=== PATIENT | female | born 1960 | race Caucasian/White ===

== ENCOUNTER 2020-04-15 07:57 | Outpatient (CLI) | payer OTHER, SELFPAY ==
--- NOTE | ~2020-04-15 | MR_ITS ---
EXAMINATION: MR lumbar spine wo con DATE: 04/15/2020 08:57 INDICATION: Lumbar radiculopathy. TECHNIQUE: Magnetic resonance imaging (MRI) of the lumbar spine was performed without intravenous con trast. Sequences included sagittal T2-weighted FSE, sagittal T2-weighted FS FSE, sagittal T1-weighted FSE, and axial T2-weighted FSE. COMPARISON: None FINDINGS: There is 6 degrees levocurvature of lumbar spine. There is 3 mm anterolisthesis of L3 on L4 . Vertebral body heights are normal. There is moderately decreased disc height at L1-L2 and mildly de creased disc height at L3-L4, L4-L5, and L5-S1. The distal spinal cord signal intensity is normal. Th e conus medullaris is at L1. The following disc levels are specifically discussed: L1-L2: The disc is bulging. There is no facet joint osteoarthritis. There is mild left neural foramin al stenosis. There is mild central canal stenosis. L2-L3: The disc is bulging and has an annular fissure. There is mild bilateral facet joint osteoarthr itis. There is mild bilateral neural foraminal stenosis. There is mild central canal stenosis. L3-L4: The disc is bulging and has an annular fissure. There is moderate right and mild left facet alexandra int osteoarthritis. There is mild bilateral neural foraminal stenosis. There is mild central canal st enosis. L4-L5: The disc is bulging and has an annular fissure. There is severe bilateral facet joint osteoart hritis. There is mild bilateral neural foraminal stenosis. There is mild central canal stenosis. L5-S1: The disc is bulging and has an annular fissure. There is moderate bilateral facet joint osteoa rthritis. There is mild bilateral neural foraminal stenosis. There is mild central canal stenosis. IMPRESSION: 1. Moderate lumbar spondylosis. Reviewed, dictated and finalized at location A.
== END 2020-04-15 07:58 | disposition home or self-care (01) ==
PROVIDERS: PCP Family Medicine; Visit Provider Anesthesiology
DX: M47.26 Other spondylosis with radiculopathy, lumbar region (principal)
CPT/HCPCS: 72148

== ENCOUNTER 2020-12-21 12:49 | Emergency (ER) | payer OTHER, SELFPAY ==
[2020-12-21 14:55] VITALS: BP 150/70; PULSE 96; RESP 16; TEMP 36.8; O2SAT 99
--- NOTE | 2020-12-21 16:28 | ED.GENADULT ---
HPI - General Adult General Chief complaint: Extremity Problem,Nontraumatic Stated complaint: Pain going down L Leg Hx Sciatica Time Seen by Provider: 12/21/20 16:27 Source: patient and family Mode of arrival: ambulatory Limitations: no limitations History of Present Illness HPI narrative: Patient is here for treatment for her left-sided sciatica. She has long history of back pain was most recently evaluated by MRI in April 2020. She was prescribed meloxicam and Flexeril for the pain. She went to physical therapy for short period of time stated she did not get any relief. She did not injure herself in any way, she states the pain came on today after being up cooking for everyone yesterday for the holiday. She has taken to meloxicam so far today with no relief. Onset (ago): hour(s) Location: buttocks and left Radiation: other (left thigh) Severity: severe Quality: sharp Pain Consistency: constant Relieving factors: none Exacerbating factors: movement Associated symptoms: denies other symptoms Treatments prior to arrival: NSAID (7.5 mg Meloxicam) Related Data Allergies Allergy/AdvReac Type Severity Reaction Status Date / Time No Known Allergies Verified 05/24/10 09:12 Review of Systems Review of Systems: All systems reviewed & are unremarkable except as noted in HPI and below [facility] Social History Social History (Updated 12/21/20 @ 17:03 by Rachel Cortés PA-C) Smoking status: Never smoker Alcohol intake: never Substance use: never Gender identity (if verbalized by the patient): Female Exam Const: General: healthy appearing and alert Orientation/consciousness: patient oriented x3 Other: obvious pain Resp: Effort & Inspection: normal respiratory effort Auscultation: clear to auscultation bilaterally Cardio: Rate: regular rate Rhythm: regular rhythm Peripheral pulses: femoral pulses present Skin: General skin exam: normal color Neuro: General: patient oriented x3 and moves all extremities Other: guards left leg Extrem: General: normal to inspection Course Course Emergency Course: Plan to stand patient has taken to 7.5 mg meloxicam tablets several hours apart this morning prior to coming to the emergency room. She got no relief. Plan is to increase to 15 mg meloxicam once a day, continue muscle relaxants. Apply warm moist heat to the affected muscle group and do gentle stretching. Talk to her Physician about resuming physical therapy Vital Signs Vital signs: Vital Signs Temperature 36.8 C 12/21/20 14:55 Pulse Rate 96 12/21/20 14:55 Respiratory Rate 16 12/21/20 14:55 Blood Pressure 150/70 H 12/21/20 14:55 Pulse Oximetry 99 12/21/20 14:55 Temperature 36.8 C 12/21/20 14:55 Pulse Rate 96 12/21/20 14:55 Respiratory Rate 16 12/21/20 14:55 Blood Pressure 150/70 H 12/21/20 14:55 Pulse Oximetry 99 12/21/20 14:55 Medical Decision Making Vital Signs Vital Signs: Vital Signs Temperature 36.8 C 12/21/20 14:55 Pulse Rate 96 12/21/20 14:55 Respiratory Rate 16 12/21/20 14:55 Blood Pressure 150/70 H 12/21/20 14:55 Pulse Oximetry 99 12/21/20 14:55 Temperature 36.8 C 12/21/20 14:55 Pulse Rate 96 12/21/20 14:55 Respiratory Rate 16 12/21/20 14:55 Blood Pressure 150/70 H 12/21/20 14:55 Pulse Oximetry 99 12/21/20 14:55 Discharge Plan Discharge Clinical Impression: Sciatica of left side Patient Disposition: Home, Self-Care Condition: Stable Instructions: Antibiotic Form, Sciatica (ED) Additional Instructions: Take your meloxicam, 15 mg once a day. Continue take your muscle relaxants as previously prescribed. Warm moist heat to your affected side, do gentle stretching. Continue your daily activities as as much as tolerated. Follow-up with your primary care physician for further evaluation and possible referral for injection. Prescriptions: New meloxicam 15 mg tablet 15 mg PO DAILY Qty: 20 RF: 0 Follo
[2020-12-21] MEDS: traMADol HCL (*CRX) 50 MG TABLET PO (17:33)
== END 2020-12-21 17:38 | disposition home or self-care (01) ==
PROVIDERS: Emergency Provider Emergency Medicine; PCP Family Medicine
DX: M54.32 Sciatica, left side (principal)
CPT/HCPCS: 99283; A9270

== ENCOUNTER 2021-12-17 01:01 | Day surgery (SDC) | payer BC, SELFPAY ==
[2021-12-02 14:02] VITALS: BMI 25.7
[2021-12-17 09:15] VITALS: BP 149/72; PULSE 86; RESP 18; TEMP 36.4; O2SAT 99; BMI 26.4
[2021-12-17] MEDS: LACTATED RINGERS 1,000 ML 150 ML IV CONT (09:26)
--- NOTE | 2021-12-17 10:08 | PM.IMHP ---
H&P: HPI History of Present Illness Date/Time: 12/17/21 10:08 Chief Complaint: Neoplasia screening. Narrative: This is a 61-year-old white female patient presents today for screening colonoscopy. Patient's current weight appetite bowel movements are normal. She denies abdominal pain. Patient has had no bleeding. Family history noncontributory. She presents today for screening colonoscopy. Review of Systems Review of Systems: Review of systems noncontributory. ON LICENSE OF [facility] Social History Social History (Updated 12/21/20 @ 17:03 by Rachel Cortés PA-C) Smoking status: Never smoker Alcohol intake: never Substance use: never Living arrangements: with family Gender identity (if verbalized by the patient): Female Spiritual care concerns: No Meds Home Medications and Allergies Home Medications Medication Instructions Recorded Confirmed Type rosuvastatin 20 mg tablet 20 mg PO DAILY 12/02/21 12/17/21 History Allergies Allergy/AdvReac Type Severity Reaction Status Date / Time No Known Allergies Verified 12/02/21 14:06 Vital Signs Vital Signs - 24 hr 12/17/21 09:15 Temperature 97.5 F L Pulse Rate 86 Respiratory Rate 18 Blood Pressure 149/72 H Pulse Oximetry 99 Oxygen Delivery Room Air Exam Narrative: Physical exam reveals patient to be alert. Vital signs stable. HEENT exam unremarkable. Patient is anicteric. Lungs are clear to auscultation and percussion. Heart is without murmur or extra sounds. Abdominal exam bowel sounds present soft nontender with no organomegaly. Digital external rectal exam is normal. Assessment and Plan Assessment and plan (1) Encounter for screening colonoscopy: Code(s): Z12.11 - Encounter for screening for malignant neoplasm of colon Status: Acute Assessment and Plan: Patient presents today for screening colonoscopy. She appears to be at average risk for colon polyps. Further recommendations may be given after endoscopy.
--- NOTE | 2021-12-17 10:09 | P.PNAN_ITS ---
Anes - Initial Pre Proc Eval Procedure: Operation Date: 12/17/21 10:15 Proposed Procedures p Screening Colonoscopy - Miller Chamberlain MD Date/Time: 12/17/21 10:09 Surgeon: Miller Chamberlain MD Pre Op Diagnosis: neoplasm screening Patient Data Age: 61 Gender: F Height: 1.63 m Weight: 70 kg Last Vital Signs Temp 97.5 F L 12/17/21 09:15 Pulse 86 12/17/21 09:15 Resp 18 12/17/21 09:15 BP 149/72 H 12/17/21 09:15 Pulse Ox 99 12/17/21 09:15 O2 Del Method Room Air 12/17/21 09:15 Allergies Allergy/AdvReac Type Severity Reaction Status Date / Time No Known Allergies Verified 12/02/21 14:06 Home Medications Medication Instructions Recorded Confirmed Type rosuvastatin 20 mg tablet 20 mg PO DAILY 12/02/21 12/17/21 History Patient hx anesthesia problems: none Family hx anesthesia problems: none Results Review: All pre-operative results and documents have been reviewed as part of the pre- operative evaluation. [facility] Social History Social History (Updated 12/21/20 @ 17:03 by Rachel Cortés PA-C) Smoking status: Never smoker Alcohol intake: never Substance use: never Living arrangements: with family Gender identity (if verbalized by the patient): Female Spiritual care concerns: No Anes - Eval Final PreProcedure Day of Procedure 12/17/21 10:09 Patient weight: normal Heart: regular rate and rhythm Lungs: clear to auscultation Airway: Mallampati scale class II Neurological: alert and oriented Last oral intake: >/= 8 hours ASA classification: II Emergent: no Anesthetic plan: proceed Anesthesia type and monitoring: general GIVS and standard monitoring Results Review: All pre-operative results and documents have been reviewed as part of the pre- operative evaluation. Informed Consent: The patient's anesthetic plan and its attendant risks and benefits were discussed with the patient/family/POA. Questions were solicited and answers provided to the satisfaction of the patient/family/POA.
[2021-12-17 10:40] VITALS: BP 114/67; PULSE 84; RESP 16; O2SAT 95
[2021-12-17 10:50] VITALS: BP 131/83; PULSE 80; RESP 17; O2SAT 98
[2021-12-17 11:00] VITALS: BP 124/83; PULSE 70; RESP 20; O2SAT 99
== END 2021-12-17 11:07 | disposition home or self-care (01) ==
PROVIDERS: PCP Family Medicine; Visit Provider Internal Medicine Gastroenterology
PROC: 0DJD8ZZ Inspection of Lower Intestinal Tract, Via Natural or Artificial Opening Endoscopic (ICD-10-PCS; CPT 45378; principal; 2021-12-17 10:15)
DX: Z12.11 Encounter for screening for malignant neoplasm of colon (principal); K57.30 Diverticulosis of large intestine without perforation or abscess without bleeding; K64.8 Other hemorrhoids
CPT/HCPCS: 45378; J2704; J7120

== ENCOUNTER → 2022-06-23 14:14 | Outpatient (CLI) | payer BC, SELFPAY ==
--- NOTE | ~2022-06-23 | XR_ITS ---
XR lumbar spine 2-3V DATE: 06/23/2022 14:34 INDICATION: Low back pain TECHNIQUE: AP, lateral, coned lateral lumbosacral views COMPARISON: None FINDINGS: There is approximately 13 degrees rotatory levoscoliosis of the lumbar spine. There is multilevel degenerative disc disease, moderately severe to L1-2, mild at L2-3, moderately se anupama at L3-4, moderate at L4-5 and L5-S1. There is degenerative change at the apophyseal joints, with associated grade 1 anterolisthesis at L4- 5. Included lower thoracic and lumbar pedicles appear intact. No fracture or bone destruction is evident . The sacroiliac joints are intact. Mild degenerative change. Abdominal aortic and iliac arterial calcifications IMPRESSION: Mild rotatory levoscoliosis Multilevel degenerative disc disease Grade 1 anterolisthesis at L4-5 Reviewed, dictated and finalized at location A. [employer]
== END ==
PROVIDERS: PCP Family Medicine; Visit Provider Chiropractor
DX: M54.50 Low back pain, unspecified (principal); M41.9 Scoliosis, unspecified; M51.36 Other intervertebral disc degeneration, lumbar region
CPT/HCPCS: 72100

== ENCOUNTER → 2022-07-28 14:33 | Outpatient (CLI) | payer BC, SELFPAY ==
--- NOTE | ~2022-07-28 | XR_ITS ---
EXAMINATION: XR hip RT min 2V DATE: 07/28/2022 14:47 INDICATION: Right hip pain. TECHNIQUE: 2 views of right hip were obtained. COMPARISON: None. FINDINGS: There is lumbar levoscoliosis and moderate spondylosis. No fracture. There is mild right hi p osteoarthritis. IMPRESSION: 1. Mild right hip osteoarthritis. Reviewed, dictated and finalized at location A. NG SOAKER
== END ==
PROVIDERS: PCP Family Medicine; Visit Provider Chiropractor
DX: M16.11 Unilateral primary osteoarthritis, right hip (principal); M25.551 Pain in right hip
CPT/HCPCS: 73502

== ENCOUNTER 2023-09-01 13:15 | Outpatient (CLI) | payer MEDICARE, SELFPAY ==
--- NOTE | ~2023-09-01 | XR_ITS ---
EXAMINATION: XR scoliosis survey DATE: 09/01/2023 13:49 INDICATION: Scoliosis. TECHNIQUE: Anteroposterior and lateral views of the entire spine standing were obtained. COMPARISON: None. FINDINGS: There is no limb length discrepancy. There are 12 pairs of ribs. There are 5 nonrib-bearing lumbar segments. There is 13 degrees levoscoliosis from C5 to T6 by the Hodgson method. There is 12 deg qamar dextroscoliosis from T6 to L2. There is 13 degrees levoscoliosis from L2 to L4. There is 2 mm re trolisthesis of C5 on C6 and C6 on C7 and 4 mm anterolisthesis of L4 on L5. There is severe cervical spondylosis, mild thoracic spondylosis, and severe lumbar spondylosis. IMPRESSION: 1. Scoliosis. 2. Severe cervical and lumbar spondylosis and mild thoracic spondylosis. Reviewed, dictated and finalized at location A.
--- NOTE | ~2023-09-01 | XR_ITS ---
XR lumbar spine min 4V 09/01/2023 13:49 Indication: Back pain. Scoliosis. Procedure: 4 views lumbar spine Comparison: No prior studies for comparison. Findings: There is disc narrowing at all lumbar levels. There is grade 1 spondylolisthesis at L4-5. T here is moderate multilevel facet hypertrophy. No acute fracture or traumatic malalignment. There is levoscoliosis centered at L3. Impression: 1: Severe lumbar spondylosis with levoscoliosis. Reviewed, dictated and finalized at location A. Impression: 1: Severe lumbar spondylosis with levoscoliosis.
== END 2023-09-01 13:16 | disposition home or self-care (01) ==
LOC: ANHIMG 13:25
PROVIDERS: PCP Family Medicine; Visit Provider Neurological Surgery
DX: M48.061 Spinal stenosis, lumbar region without neurogenic claudication (principal); M41.86 Other forms of scoliosis, lumbar region; M43.06 Spondylolysis, lumbar region; M43.04 Spondylolysis, thoracic region
CPT/HCPCS: 72082; 72110

== ENCOUNTER 2023-09-05 15:04 | Outpatient (CLI) | payer MEDICARE, SELFPAY ==
--- NOTE | ~2023-09-05 | MR_ITS ---
MRI of the lumbar spine Clinical History: Stenosis Technique: Axial T2-weighted images, and sagittal T1-weighted, T2-weighted, and T2 fat-sat images wer e acquired. COMPARISON: 04/15/2020 Findings: There is worsening grade 1 anterolisthesis of L4 over L5, now measuring 5 mm. No acute frac ture seen. No suspicious bone marrow signal abnormality seen. At L1-L2, there is moderate degenerative disc narrowing. There is mild disc bulge and mild facet arth ropathy. No central canal stenosis. There is mild bilateral neural foraminal narrowing. At L2-L3, there is mild degenerative disc narrowing. There is mild disc bulge and mild facet arthropa thy. No central canal stenosis. There is mild bilateral neural foraminal narrowing. At L3-L4, there is advanced degenerative disc disease narrowing. Diffuse disc bulge and moderate face t arthropathy result in severe spinal canal stenosis/thecal sac compression. There is severe right ne ural foraminal narrowing, and moderate left neural foraminal narrowing. At L4-L5, there is degenerative disc narrowing. Disc bulge/uncovering and severe facet arthropathy re sult in severe spinal canal stenosis/thecal sac compression. There is severe left neural foraminal na rrowing, and mild to moderate right neural foraminal narrowing. At L5-S1, there is advanced degenerative disc narrowing. There is mild disc bulge with possible super imposed central to left paracentral disc protrusion. There is advanced facet arthropathy. There is mi ld central canal stenosis. There is severe left neural foraminal narrowing, and mild right neural for aminal narrowing. Paravertebral soft tissues are unremarkable. Impression: Severe degenerative spondylosis, as detailed above, especially at L3-L4 and L4-L5. Worsening 5 mm anterolisthesis of L4 over L5. Reviewed, dictated and finalized at [facility]. Impression: Severe degenerative spondylosis, as detailed above, especially at L3-L4 and L4- L5. Worsening 5 mm anterolisthesis of L4 over L5.
== END 2023-09-05 15:05 ==
LOC: MICIMG 15:05
PROVIDERS: PCP Family Medicine; Visit Provider Neurological Surgery
DX: M41.9 Scoliosis, unspecified (principal); M48.061 Spinal stenosis, lumbar region without neurogenic claudication; M43.06 Spondylolysis, lumbar region
CPT/HCPCS: 72148

== ENCOUNTER 2024-08-09 09:23 | Emergency (ER) | payer MEDICARE, SELFPAY ==
--- NOTE | 2024-08-09 09:25 | ECG_ITS ---
Test Date: 2024-08-09 09:33:16 Measurements Intervals [place] Rate: 88 P: 61 MD: 153 QRS: 22 QRSD: 85 T: 78 QT: 348 QTc: 421 Interpretive Statements SINUS RHYTHM MINIMAL ST DEPRESSION- ANTEROLAT/INF LEADS BASELINE ARTIFACT- I, II, III, AVR, AVL, AVF BORDERLINE ECG No previous ECG available for comparison Electronically Signed On 08-09-2024 09:40:50 SMALL ARMS REPAIRER by Irving Valadez D.O.
[2024-08-09 09:44] VITALS: BP 156/76; PULSE 90; RESP 16; TEMP 36.2; O2SAT 97
--- OUTSIDE RECORDS SUMMARY | 2024-08-09 10:03 | XMS_ITS | Clinical Summary ---
Author Organization [facility] Address [address] [place] [address] Care Team Providers Care Inpatient Nursing Aide Name Role Phone Ayo Dubois MD Primary Care Provider [phone] Allergies No known active allergies Medications rosuvastatin (CRESTOR) 20 MG tabletIndicatio ns:Hyperlipidem ia Take 1 tablet (20 mg total) by mouth daily. Indications: High Amount of Fats in the Blood 4 Active lisinopril (PRINIVIL) 20 MG tabletIndicatio ns:Hypertension Take 1 tablet (20 mg total) by mouth daily. Indications: High Blood Pressure 4 Active Cyanocobalamin 1000 MCG CapIndications: Supplement Take 5,000 mcg by mouth daily. Indications: Supplement Active vitamin D3, cholecalciferol , (CHOLECALCIFERO L) 125 mcg capsuleIndicati ons:Supplement Take 1 capsule by mouth daily. Indications: Supplement Active Ascorbic Acid 1000 MG TabIndications: Supplement Take 1,000 mg by mouth daily. Indications: Supplement Active amLODIPine (NORVASC) 5 MG tabletIndicatio ns:Hypertension Take 1 tablet (5 mg total) by mouth daily. Indications: High Blood Pressure 4 Active Calcium Carbonate-Vitam in D (CALTRATE 600+D OR)Indications: Supplement Take 1,200 mg by mouth daily. Indications: Supplement Active NON FORMULARYIndica tions:Supplemen t Take 2 tablets by mouth daily. Indications: Supplement [place] Active NON FORMULARYIndica tions:Supplemen t Take 2 tablets by mouth daily. Indications: Supplement Lion's Julio Cesar Active Apoaequorin (PREVAGEN) 10 MG CapIndications: Supplement Take 1 capsule by mouth daily. Indications: Supplement 4 Active NON FORMULARYIndica tions:Digestion Take 1 tablet by mouth nightly. Indications: Digestion Oxy Powder for digestion Active HYDROcodone-raimundo taminophen (NORCO) 5-325 MG tabletIndicatio ns:Acute Pain < 7 Day Supply,postop Take 1-2 tablets by mouth every 6 (six) hours as needed. Indications: Acute Pain < 7 Day Supply, postop 55 tablet 4 Active senna-docusate (SENOKOT-S) 8.6-50 MG tabletIndicatio ns:Constipation Take 1 tablet by mouth daily. 60 tablet 1 4 Active diazePAM (VALIUM) 5 MG tabletIndicatio ns:Muscle Spasm Take 1 tablet (5 mg total) by mouth every 8 (eight) hours as needed for Muscle Spasms. 45 tablet 4 Active naloxone (NARCAN) 4 MG/0.1ML nasal sprayIndication s:Opoid Reversal 1 spray by Nasal route as needed for Opioid reversal. may repeat every 2 to 3 minutes in alternating nostrils until medical assistance becomes available 1 each 4 02/28/20 25 Active Active Problems Problem Noted Date Diagnosed Date Spondylolisthesis 02/26/2024 Encounters Date Type Department Care Team Description 06/05/2024 10:15 AM CORK INSULATION SETTER - 06/05/2024 11:59 PM [facility] Hospital Encounter [facility] [place] [address] Antonino Inman MD Discharge Disposition: Home or Self Care (Routine Discharge) 06/05/2024 Travel from Last 3 Months Social History Tobacco Use Types Packs/Day Years Used Date Smoking Tobacco: Never Smokeless Tobacco: Never Tobacco Cessation:Counseling Given: Not Answered Alcohol Use Standard Drinks/Week Comments Never 0 (1 standard drink = 0.6 oz pur e alcohol) OASIS D0700: Social Isolation Answer Da te Recorded Frequency of experiencing loneliness or isolatio n Never 03/14/2024 OASIS A1250: Transportation Answer Date Recorded Lack of Transportation (Medical) No 03/14/2024 Lack of Transportation (Non-Medical) No 03/14/2024 Patient Unable or Declines to Respond No 03/14/2024 OASIS B1300: Health Literacy Answer Coleman e Recorded Frequency of needing help to read materials from doctor or pharmacy Never 03/14/2024 [facility] Utilities Answer Date Recorded In the past 12 months has th e [employer], gas, oil, or water company threatened to shut off services in your home? No 02/27/2024 Humiliation, Afraid, Rape, and Kick questionnair e Answer Date Recorded Within the last year, have y ou been afraid of your partner or ex-partner? No 02/27/2024 Within the last year, have y ou been humiliated or emotionally abused in other ways by your partner or ex-partner? No Within the last year, have y ou been kicked, hit, slapped, or otherwise physically hurt by your partner or ex-partner? No 02/27/2024 Within the last year, have y ou been raped or forced to have any kind of sexual activity by your partner or ex-partner? No 02/27/2024 Overall Financial Resource Strain (CARDIA) Answe r Date Recorded How hard is it for you to pa y for the very basics like food, housing, medical care, and heating? Not hard at all 02/27/2024 Hunger Vital Sign Answer Date Recorded Within the past 12 months, y ou worried that your food would run out before you got the money to buy more. Never true 02/27/20 24 Within the past 12 months, t he food you bought just didn't last and you didn't have money to get more. Never true 02/27/2024 PRAPARE - Transportation Answer Date Re corded In the past 12 months, has l ack of transportation kept you from medical appointments or from getting medications? No 02/17 In the past 12 months, has l ack of transportation kept you from meetings, work, or from getting things needed for daily living? No 02/27/2024 Housing Stability Vital Sign Answer Coleman e Recorded In the last 12 months, was t here a time when you were not able to pay the mortgage or rent on time? No 02/27/2024 In the past 12 months, how m any times have you moved where you were living? 0 02/27/2024 At any time in the past 12 m [facility], were you homeless or living in a assisted (including now)? No 02/27/2024 Comments No Sex and Gender Information Value Date Recorded Sex Assigned at Not on file Legal Sex Female 1:23 PM CDT Gender Identity Not on file Sexual Orientation Not on file Last Filed Vital Signs Vital Sign Reading Time Taken Comments Blood Pressure 128/80 03/14/2024 12:27 PM CDT Pulse 80 03/14/2024 12:27 PM CDT Temperature 36.6 C (97.9 F) 03/14/2024 12:27 PM CDT Respiratory Rate 16 03/14/2024 12:27 PM CDT Oxygen Saturation 96% 03/14/2024 12:27 PM CDT Inhaled Oxygen Concentration - - Weight 72.6 kg (160 lb) 03/04/2024 10:44 AM CDT Height 162.6 cm (5' 4 ) 03/04/2024 10:44 AM CDT Body Mass Index 27.46 03/04/2024 10:44 AM CDT Plan of Treatment Health Maintenance Due Date Last Done Comments Colorectal Cancer Screening Colonoscopy (10 Years) 1958 Hepatitis C 1976 Mammogram Screening 04/12/2023 04/12/2021, 02/19/2020, 10/04/2018 Annual Medicare Wellness Visit 2023 Dexa Scan (General) 2023 Pneumococcal Vaccine: 65+ Years (1 of 1 - PCV) 2023 COVID-19 Vaccine ( - season) 2024 05/03/2023, 06/28/2021, 08/21/2020 Influenza Adult (#1) 2024 05/03/2023, 04/19/2022, 06/28/2021, Additional history exists DTaP, Tdap and Td Vaccines (3 - Td or Tdap) 11/13/2031 11/12/2021, 03/17/2010 RSV Immunization or 60+ Years (1 - 1-dose 75+ series) 2033 Zoster Vaccines Completed 02/28/2020, 07/20, 04/22/2014 Meningococcal B Vaccine Aged Out No l onger eligible based on patient's age to complete this topic Meningococcal Vaccine Aged Out No latricia zoë eligible based on patient's age to complete this topic RSV Immunizations Under 20 Months Aged Out No longer eligible based on patient's age to complete this topic Goals Goal Patient Goal Type Associated Problems Recent Progress Patient-Stated? Author Patient will return to prior living situation and remain independent in ADLs upon discharge from hospital Lifestyle No Arina Mason, JUNIOR ART DIRECTOR Medical Devices Implanted Type Area Door Closer Mechanic Device Identifier Shelf Expiration Date Model / Serial / Lot Corelink F3d Straight Lumbar Cage Implanted:Qty: 1 on 02/26/2024 by Antonino Inman MD at [facility] Cage N/A: Spine Lumbar [id number] 06/23/2027 [id number] / / [id number] Description:CORELINK L3-4 Corelink F3d Straight Lumbar Cage Implanted:Qty: 1 on 02/26/2024 by Antonino Inman MD at [facility] Cage N/A: Spine Lumbar [id number] 08/20/2027 [id number] / / [id number] Description:CORELINK L5-S1 Corelink F3d Straight Lumbar Cage Implanted:Qty: 1 on 02/26/2024 by Antonino Inman MD at [facility] Cage N/A: Spine Lumbar [id number] 07/01/2028 [id number] / / [id number] Description:CORELINK L4-L5 Orthofix 90 Mm Herb Implanted:Qty: 2 on 02/26/2024 by Antonino Inman MD at [facility] Herb N/A: Spine Lumbar ORTHOFIX . [id number] / / . Orthofix 5.5 X 45 Mm Screw Implanted:Qty: 1 on 02/26/2024 by Antonino Inman MD at [facility] Screw N/A: Spine Lumbar ORTHOFIX . [id number] / / . Description:RIGHT L3 Orthofix 5.5 X 50 Mm Screws Implanted:Qty: 3 on 02/26/2024 by Antonino Inman MD at [facility] Screw N/A: Spine Lumbar ORTHOFIX . [id number] / / . Description:LEFT L3 BILATERAL L4 Orthofix 6.5 X 40 Mm Screws Implanted:Qty: 1 on 02/26/2024 by Antonino Inman MD at [facility] Screw N/A: Spine Lumbar ORTHOFIX . [id number] / / . Description:RIGHT S1 Orthofix 6.5 X 45 Mm Screws Implanted:Qty: 2 on 02/26/2024 by Antonino Inman MD at [facility] Screw N/A: Spine Lumbar ORTHOFIX . [id number] / / . Description:RIGHT L5 LEFT S1 Orthofix 6.5 X 50 Mm Screws Implanted:Qty: 1 on 02/26/2024 by Antonino Inman MD at [facility] Screw N/A: Spine Lumbar ORTHOFIX . [id number] / / . Description:LEFT L5 Orthofix Set Screws Implanted:Qty: 8 on 02/26/2024 by Antonino Inman MD at [facility] N/A: Spine Lumbar ORTHOFIX . 36 / / . Orthofix Top Loading Body Implanted:Qty: 8 on 02/26/2024 by Antonino Inman MD at [facility] N/A: Spine Lumbar ORTHOFIX . 36 / / . Procedures Procedure Name Priority Date/Time Associated Diagnosis Comments XR LUMB SPINE AP+LAT ONLY Routine 06/05/2024 10:40 AM CORK INSULATION SETTER Lumbar stenosis from Last 3 Months Results * XR LUMB SPINE AP+LAT ONLY (06/05/2024 10:40 AM CORK INSULATION SETTER) Anatomical Region Laterality Modality Spine Radiographic Alondra ging 06/08/2024 9:44 AM CORK INSULATION SETTER Impressions 06/08/2024 9:46 AM CORK INSULATION SETTER IMPRESSION: Stable fusion changes at L3-S1. Referred By: Interpreted By: Reji Leyva MD, 06/08/2024 9:44 AM Narrative 06/08/2024 9:46 AM CORK INSULATION SETTER [address] [address] Procedure(s): XR LUMB SPINE AP+LAT ONLY Date of service: 06/05/2024 10:28 AM Provided clinical information: 63 years, Female, PAIN Procedure and materials: AP and lateral view of the lumbar spine. Comparison studies: April 09, 2024. Findings: Mild right concave scoliosis of the lumbar spine. Fusion changes of bowel 3 through S1 is present. No lucency about the hardware. Intervertebral disc fixators at L3-4 L4-5 and L5-S1. Stable loss of height of the disc space is present at L1 to. Procedure Note Reji Leyva MD - 06/08/[address] [address] Procedure(s): XR LUMB SPINE AP+LAT ONLY Date of service: 06/05/2024 10:28 AM Provided clinical information: 63 years, Female, PAIN Procedure and materials: AP and lateral view of the lumbar spine. Comparison studies: April 09, 2024. Findings: Mild right concave scoliosis of the lumbar spine. Fusion changes of bowel 3 through S1 is present. No lucency about thehardware. Intervertebral disc fixators at L3-4 L4-5 and L5-S1. Stable loss of height of the disc space is present at L1 to. IMPRESSION: Stable fusion changes at L3-S1. Referred By: Interpreted By: Reji Leyva MD, 06/08/2024 9:44 AM Antonino Inman MD GENERAL IMAGING Final Result from Last 3 Months Insurance [place]INES [id number] [employer] Advance Directives * Full Code (Latest Code Status on File) Date Activated Date Inactivated Comments 03/04/2024 10:46 AM * Full Code Date Activated Date Inactivated Comments 02/26/2024 2:52 PM 02/29/2024 2:39 PM Care Teams Inpatient Nursing Aide Relationship Specialty Start Date End Date Ayo Dubois MD [address] [place] [address] PCP - General FAMILY PRACTICE 02/15/24
--- OUTSIDE RECORDS SUMMARY | 2024-08-09 10:03 | XMS_ITS | Clinical Summary ---
Author Organization [address] Address [facility] [place] [address] Care Team Providers Care Full Decator Operator Name Role Phone Ayo Dubois MD Primary Care Provider [phone] Sofía Jack MD Unavailable Allergies No known active allergies Medications PARoxetine (PAXIL) 10 mg tablet Take 1 tablet (10 mg total) by mouth every morning 30 tablet 11 03/18/2021 Active Active Problems Problem Noted Date Diagnosed Date Lichen sclerosus et atrophicus 10/24/2018 Surgical History Surgery Date Site/Laterality Comments APPENDECTOMY 06/19/1978 - 06/18/1979 TUBAL LIGATION 06/19/1984 - 06/18/1985 VAGINAL HYSTERECTOMY 06/19/1994 - 06/18/1995 TVH; fibroids COMBINED AUGMENTATION MAMMAPLASTY AND ABDOMINOPLASTY 06/19/2008 - 06/18/2009 breast lift iwth abdominoplasty Medical History Medical History Date Comments Fibroid Family History Medical History Relation Name Comments Diabetes Father Heart disease Maternal Grandmother Heart disease Mother Relation Name Status Comments Father Maternal Grandmother Mother Social History Tobacco Use Types Packs/Day Years Used Date Smoking Tobacco: Never Smokeless Tobacco: Never Alcohol Use Standard Drinks/Week Comments Never 0 (1 standard drink = 0.6 oz pur e alcohol) AUDIT-C Answer Date Recorded Frequency of Alcohol Consumption Never 08/27/2018 Average Number of Drinks Not on file 019 Frequency of Binge Drinking Not on file 08/17 PHQ-2 Answer Date Recorded PHQ-2 Score 0 02/09/2019 Personal Safety Answer Date Recorded Getting School Help Needed Not on file 07/23 Comments No Sex and Gender Information Value Date Recorded Sex Assigned at Not on file Legal Sex Female 6:13 PM CHARACTER IMPERSONATOR Gender Identity Female 03/11/2021 8:45 AM CDT Sexual Orientation Straight 03/11/2021 8: 45 AM CDT 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 Not on file Not on file Obstetrics History Para Term AB IAB SAB Ectopic Multiple Livin g Live Births 2 2 2 2 2 Date Outcome GA Total Labor Labor/2nd/3rd Weight Sex Type Anes PTL Cheri A1 A5 Name Clin Term Vag-S pont Living Term Vag-S pont Living Last Filed Vital Signs Vital Sign Reading Time Taken Comments Blood Pressure 134/86 03/11/2021 2:14 PM CDT Pulse - - Temperature - - Respiratory Rate - - Oxygen Saturation - - Inhaled Oxygen Concentration - - Weight 71.7 kg (158 lb) 03/11/2021 2:14 PM CDT Height 160 cm (5' 3 ) 03/11/2021 2:14 PM CDT Body Mass Index 27.99 03/11/2021 2:14 PM CDT Plan of Treatment Not on file Insurance [email or web address] [place] [facility] Care Teams Full Decator Operator Relationship Specialty Start Date End Date Ayo Dubois MD [address] [place] [id number] PCP - General Family Medicine 07/24/18 Sofía Jack MD [address] [place] [address] [place] [address] Consulting Physician Obstetrics and Gynecology 08/27/18
--- OUTSIDE RECORDS SUMMARY | 2024-08-09 10:04 | XMS_ITS ---
Author Organization [facility] Address [address] [facility] [place] [address] Care Team Providers Care Production Team Leader Name Role Phone SIXTO DWYER, NAGA REGGIE Primary Care Provider Unav ailable Jacobo Emanuel Unavailable [phone] Camilo Ayala DC Unavailable Unavailable REASON FOR VISIT follow up Encounters Encounter Location Date Provider Diagnosis [facility] [address] [facility] [address] [place] [address] 06/27/2023 Jacobo Emanuel PLAN OF TREATMENT No Information
--- OUTSIDE RECORDS SUMMARY | 2024-08-09 10:04 | XMS_ITS | Patient Health Record ---
Author Organization [facility] Address [address] [place] [address] [place] [address] Care Team Providers Care Equipment Operat0R Name Role Phone SIXTO DWYER, NAGA REGGIE Primary Care Provider Unav Jacobo Martinez Unavailable [phone] Camilo Ayala DC Unavailable Unavailable ALLERGIES Allergen (clinical drug ingredient) Drug/Non Drug Allergy documented on EMR Reaction Allergy Type Onset Date Status pregabalin Lyrica felt depressed Drug Allergy A ctive tramadol Tramadol sedation Drug Allergy Active REASON FOR REFERRAL No Information MEDICATIONS Medication SIG (Take, Route, Frequency, Duration) Notes Start Date End Date Status traMADol HCl 50 MG 1 tablet as needed O rally Once a day Active Fish Oil Active Calcium Active Cyclobenzaprine HCl 5 MG 1-2 tab orally at bed time as needed for muscle spasm for 30 day(s) 10/20/2020 Active Meloxicam 7.5 MG 1 tablet Orally BID pain for 30 day(s) 10/20/2020 Active Medrol 4 MG as directed Orally 12/13/2022 Active Lisinopril 10 MG Oral for 90 A ctive Rosuvastatin Calcium 20 MG TAKE 1 TABLET BY MOUTH DAILY Oral for 90 Active SOCIAL HISTORY Tobacco Use: Social History Observation Description Date Details (start date - stop date) Never Smoker NA - NA Sex Assigned At : Social History Observation Description Sex Assigned At Unknown Tobacco Use/Smoking Question Answer Notes Are you a nonsmoker Alcohol Screen (Audit-C) Question Answer Notes Did you have a drink containing alcohol in the p ast year? No Points 0 Interpretation Negative PROBLEMS Problem Type ICD Code Onset Dates Problem Status W/U Status Risk SNOMED Code Notes Problem Sacroiliitis, not elsewhere classified (M46.1) Active confirmed Solitary sacroiliitis (089705986) Problem Spondylosis without myelopathy or radiculopathy, lumbar region (M47.816) Active confirmed Lumbosacral spondylosis without myelopathy (67761276) Problem Spondylosis without myelopathy or radiculopathy, lumbosacral region (M47.817) Active confirmed Lumbosacral spondylosis without myelopathy (disorder) (52788827) Problem Intervertebral disc disorders with radiculopathy, lumbar region (M51.16) Active confirmed Radiculopathy d ue to lumbar intervertebral disc disorder (897999978408125) Problem Other intervertebral disc degeneration, lumbar region (M51.36) Active confirmed Degeneration of lumbar intervertebral disc (48501311) Problem Radiculopathy, lumbar region (M54.16) Active confirmed Lumbar radiculopathy (503333106) Problem Radiculopathy, lumbosacral region (M54.17) Active confirmed Lumbosacral radiculopathy (5197181) Problem Low back pain (M54.5) Active confirmed Low back pain (522556901) Problem Osseous stenosis of neural canal of lumbar region (M99.33) Active confirmed Spinal stenosis of lumbar region (03211225) Problem predatory animal exterminator (current) use of anticoagulants (Z79.01) Active confirmed Long-term curre nt use of anticoagulant (390853503) PLAN OF TREATMENT Pending Test Test Name Order Date MRI : Lumbar Spine without contrast (721 48) 07/30/2014 MRI : Lumbar Spine without contrast (721 48) 04/09/2020 Insurance Providers Payer Name Payer Address Payer Phone Subscriber Number Group Number Insured Name Patient Relationship to Insured Coverage Start Date Coverage End Date [facility] [address] [place] [address] [id number] ELHAM EARL Self - patient is the insured MEDICAL (GENERAL) HISTORY Medical History History ICD Code Migraine Headaches Surgical History Surgery Date(Month/Year) Appendectomy 1998 Hysterectomy 2001
--- OUTSIDE RECORDS SUMMARY | 2024-08-09 10:04 | XMS_ITS | Clinical Summary ---
Author Organization [facility] Address [address] [place] [address] Care Team Providers Care Systems Protection Technician Name Role Phone Ayo Dubois MD Primary Care Provider [phone] Source Comments [facility],non-owned Affiliates and Associated Physician Practices is amultiple site organization consisting of ambulatory clinics and hospital sitesin [place], [place], [place] and [place]. This disclosure is being madepursuant to the Care Everywhere program and may not contain all information available regarding this patient. Last updated 18.[facility] Allergies No known active allergies Medications * Be aware that medications may not be up to date on this document. Alwaysverify current medications with the patient. Medication Sig Dispensed Refills Start Date End Date Status estradiol (ESTRACE) 0.5 MG tablet Take 0.5 mg by mouth once daily 2 11/09/2018 Active phentermine (ADIPEX-P) 37.5 MG tablet Take 37.5 mg by mouth daily before breakfast Active Cyanocobalamin (B-12) 1000 MCG Take 5,000 mcg by mouth once daily Active Pyridoxine HCl (VITAMIN B-6 PO) Take 2 mg by mouth once daily Active folic acid 800 MCG tablet Take 800 mcg by mouth once daily Active vitamin D3 (D-3-5) 5000 units capsule Take 5,000 Units by mouth once daily Active vitamin C (ASCORBIC ACID) 1000 MG tablet Take 1,000 mg by mouth once daily Active Bude-3 Fatty Acids (OMEGA-3 FISH OIL) 1200 MG Take 1,200 mg by mouth once daily Active Calcium Carbonate-Vit D-Min (CALCIUM 1200 PO) Take 1,200 mg by mouth once daily Active aspirin (ASPIRIN) 81 MG tablet Take 81 mg by mouth once daily Active Active Problems Problem Noted Date Diagnosed Date 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 (F LUZONE; FLULAVAL; FLUARIX; AFLURIA QUADRIVALENT; 6MO+), 0.5 ML (IIV4) 04/15/2019 Family History Medical History Relation Name Comments Dementia Father Diabetes - Type 2 Father Hypertension Father CAD (Coronary Artery Disease) Mother Hyperlipidemia Mother Relation Name Status Comments Father Mother Social History Tobacco Use Types Packs/Day Years Used Date Smoking Tobacco: Never Smokeless Tobacco: Never Alcohol Use Standard Drinks/Week Comments Yes 0 (1 standard drink = 0.6 oz pur e alcohol) Sex and Gender Information Value Date Recorded Sex Assigned at Not on file Gender Identity Not on file Sexual Orientation Not on file Last Filed Vital Signs Vital Sign Reading Time Taken Comments Blood Pressure 149/88 11/20/2018 3:55 PM CDT Pulse 89 11/20/2018 3:55 PM CDT Temperature - - Respiratory Rate - - Oxygen Saturation - - Inhaled Oxygen Concentration - - Weight 65.8 kg (145 lb) 04/25/2019 11:14 AM HOME SERVICE DIRECTOR Height 160 cm (5' 3 ) 04/25/2019 11:14 AM HOME SERVICE DIRECTOR Body Mass Index 25.69 04/25/2019 11:14 AM HOME SERVICE DIRECTOR Plan of Treatment Health Maintenance Due Date Last Done Comments BONE DENSITY TESTING 1960 COLOGUARD (AGES 45-75) - COL ON CA SCREENING 1958 COLON MONITORING 1958 COLONOSCOPY - COLON CA SCREENING 1958 CT COLONOGRAPHY - COLON CA SCREENING 1960 Colorectal Cancer Screening 1958 FIT - COLON CA SCREENING 1958 FLEX SIG - COLON CA SCREENING 1958 LIPID TESTING 1958 PAP SMEAR 1958 HIV SCREENING 1973 HEPATITIS C SCREENING 07/16/1976 DTAP/TDAP/TD VACCINES (1 - Tdap) 1977 PNEUMOCOCCAL VACCINE 50+ (1 of 1 - PCV) 2008 ZOSTER VACCINE (1 of 2) 2008 SCREENING FOR DIABETES 11/20/2018 MAMMOGRAM 10/04/2020 10/04/2018 COVID-19 VACCINE ( - 2023-2 5 season) 2024 INFLUENZA VACCINE (#1) 2024 04/15/2019 DEPRESSION SCREENING 06/19/2024 Respiratory Syncytial Virus (RSV) Vaccine Pt: or over 60 yrs (1 - 1-dose 75+ series) 2033 HEPATITIS B VACCINE Aged Out No longe r eligible based on patient's age to complete this topic HIB VACCINE Aged Out No longer eligi ble based on patient's age to complete this topic HPV VACCINE Aged Out No longer eligi ble based on patient's age to complete this topic MENINGOCOCCAL (Group B) VACCINE Aged Out No longer eligible based on patient's age to complete this topic MENINGOCOCCAL VACCINE Aged Out No latricia zoë eligible based on patient's age to complete this topic Care Teams Systems Protection Technician Relationship Specialty Start Date End Date Ayo Dubois MD [address] [place] [address] [place] [address] PCP - General 11/02/18
--- OUTSIDE RECORDS SUMMARY | 2024-08-09 10:04 | XMS_ITS | Patient Health Summary ---
Author Organization [facility] Address [address] [place] [address] Care Team Providers Care Tile Designer Name Role Phone Ayo Dubois MD Primary Care Provider [phone] Note from [facility],non-owned Affiliates and Associated Physician Practices is amultiple site organization consisting of ambulatory clinics and hospital sitesin [place], [place], [place] and [place]. This disclosure is being madepursuant to the Care Everywhere program and may not contain all information available regarding this patient. Last updated 18.[facility] Allergies No known active allergies Medications * Be aware that medications may not be up to date on this document. Alwaysverify current medications with the patient. * estradiol (ESTRACE) 0.5 MG tablet(Started 11/09/2018) Take 0.5 mg by mouth once daily 2 refills left * phentermine (ADIPEX-P) 37.5 MG tablet Take 37.5 mg by mouth daily before breakfast * Cyanocobalamin (B-12) 1000 MCG Take 5,000 mcg by mouth once daily * Pyridoxine HCl (VITAMIN B-6 PO) Take 2 mg by mouth once daily * folic acid 800 MCG tablet Take 800 mcg by mouth once daily * vitamin D3 (D-3-5) 5000 units capsule Take 5,000 Units by mouth once daily * vitamin C (ASCORBIC ACID) 1000 MG tablet Take 1,000 mg by mouth once daily * [place]-3 Fatty Acids (OMEGA-3 FISH OIL) 1200 MG Take 1,200 mg by mouth once daily * Calcium Carbonate-Vit D-Min (CALCIUM 1200 PO) Take 1,200 mg by mouth once daily * aspirin (ASPIRIN) 81 MG tablet Take 81 mg by mouth once daily Active Problems Problem Noted Date Diagnosed Date 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 (FLUZONE; FLULAVAL; FLUARIX; AFLURIA QUADRIVALENT; 6MO+), 0.5 ML (IIV4)(Given 04/15/2019) Social History Tobacco Use Types Packs/Day Years [...] 65.8 kg (145 lb) 04/25/2019 11:14 AM [employer] Height 160 cm (5' 3 ) 04/25/2019 11:14 AM [employer] Body Mass Index 25.69 04/25/2019 11:14 AM [employer] Procedures * MRI IAC WWO CONTRAST(Performed 04/02/2019) Performed for Hearing loss, sensorineural, unilateral * CREATININE BLOOD - POCT (IP) [facility](Performed 04/02/2019) Performed for Hearing loss, sensorineural, unilateral Results * MRI IAC WWO CONTRAST (04/02/2019 3:20 PM CDT) Anatomical Region Laterality Modality Head Magnetic Resonan ce 04/02/2019 3:28 PM CDT Impressions 04/02/2019 3:38 PM CDT IMPRESSION: No enhancing lesions identified along the course of the seventh/8th cranial nerve complexes. Normal appearance of the internal auditory canals. I, Dr. CONSTANCE AVILEZ have personally reviewed and interpreted this examination/study. This report was electronically signed by CONSTANCE AVILEZ on 04/02/2019 3:38 PM . Narrative 04/02/2019 3:38 PM CDT EXAMINATION: Magnetic resonance imaging (MRI) of the brain without and with contrast HISTORY: Asymmetric hearing loss. Per clinical notes, echoing sound in right ear, possible low frequency hearing loss. TECHNIQUE: MRI of the brain was performed prior to and following the uneventful administration of 6 mL Gadavist intravenous gadolinium contrast according to a dedicated internal auditory canal (IAC) protocol. This included detailed coronal and axial imaging through the intracranial course of cranial nerves five through eight. COMPARISON: No prior study is available for comparison at the time of this dictation. FINDINGS: The cerebellopontine angles and internal auditory canals appear normal. No enhancing lesions are identified along the course of the cranial nerve 7/8 complexes. The signal within the bony labyrinth appears normal on both sides. The mastoids appear clear. A developmental venous anomaly is seen in the left medial parietal lobe, posterior to the splenium. Otherwise, the adjacent portions of the brain appear normal, without evidence of acute cerebral infarction, acute or chronic intracranial hemorrhage, or mass/mass effect. The posterior fossa and brainstem appear normal. Mild mucosal thickening is present in the anterior segment air cells and bilateral maxillary sinuses. The orbits and intraorbital contents appear normal. Procedure Note Constance Avilez MD - 04/02/2019 EXAMINATION: Magnetic resonance imaging (MRI) of the brain without and with contrast HISTORY: Asymmetric hearing loss. Per clinical notes, echoing sound in right ear, possible low frequency hearing loss. TECHNIQUE: MRI of the brain was performed prior to and following the uneventful administration of 6 mL Gadavist intravenous gadoliniumcontrast according to a dedicated internal auditory canal (IAC) protocol. This included detailed coronal and axial imaging through the intracranial course of cranial nerves five through eight. COMPARISON: No prior study is available for comparison at the time ofthis dictation. FINDINGS: The cerebellopontine angles and internal auditory canals appear normal.No enhancing lesions are identified along the course of the cranial nerve7/8 complexes. The signal within the bony labyrinth appears normal on both sides. The mastoids appear clear. A developmental venous anomaly is seen in the left medial parietal lobe, posterior to the splenium. Otherwise, the adjacent portions of the brain appear normal, without evidence of acute cerebral infarction, acute or chronic intracranial hemorrhage, or mass/mass effect. The posteriorfossa and brainstem appear normal. Mild mucosal thickening is present in the anterior segment air cells and bilateral maxillary sinuses. The orbitsand intraorbital contents appear normal. IMPRESSION: No enhancing lesions identified along the course of the seventh/8th cranial nerve complexes. Normal appearance of the internal auditory canals. I, Dr. CONSTANCE AVILEZ have personally reviewed and interpreted this examination/study. This report was electronically signed by CONSTANCE AVILEZ on 04/02/2019 3:38 PM . Dhara Rodriguez FINAL INSPECTOR TRUCK TRAILER-FOOD SERVER MR ORDERABLE S * CREATININE BLOOD - POCT (IP) [facility] (04/02/2019 2:17 PM CDT) Creatinine POCT 0.86 0.3 - 1.3 mg/dL [facility] POCT TESTING eGFR POCT 60 60 ml/min [facility] Blood BLOOD SPECIMEN / Unknown 04/02/2019 2:17 PM CDT Dhara Rodriguez FINAL INSPECTOR TRUCK TRAILER-FOOD SERVER LAB - POINT OF CARE ORDERABLES [facility] POCT TESTING Formerly [facility] [phone] Care Teams Tile Designer Relationship Specialty Start Date End Date Ayo Dubois MD [address] [place] [id number] PCP - General 11/02/18
--- OUTSIDE RECORDS SUMMARY | 2024-08-09 10:04 | XMS_ITS ---
Author Organization [facility] Address [address] [place] [address] Laurie Alvares [place] [address] Care Team Providers Care Wood Planer Name Role Phone SIXTO DWYER, NAGA REGGIE Primary Care Provider Unav abraham Jenae Jacobo Unavailable [phone] Camilo Ayala DC Unavailable Unavailable ALLERGIES Allergen (clinical drug ingredient) Drug/Non Drug Allergy documented on EMR Reaction Allergy Type Onset Date Status pregabalin Lyrica felt depressed Drug Allergy A ctive tramadol Tramadol sedation Drug Allergy Active REASON FOR VISIT Right > Left Low Back Pain, Right Lower Extremity Pain MEDICATIONS Medication SIG (Take, Route, Frequency, Duration) Notes Start Date End Date Status Cyclobenzaprine HCl 5 MG 1-2 tab orally at bed time as needed for muscle spasm for 30 day(s) 10/20/2020 Active Meloxicam 7.5 MG 1 tablet Orally BID pain for 30 day(s) 10/20/2020 Active Medrol 4 MG as directed Orally 12/13/2022 Active Lisinopril 10 MG Oral for 90 A ctive Rosuvastatin Calcium 20 MG TAKE 1 TABLET BY MOUTH DAILY Oral for 90 Active traMADol HCl 50 MG 1 tablet as needed O rally Once a day Active Fish Oil Active Calcium Active VITAL SIGNS Blood pressure systolic 182 mm Hg 06/06/20 23 Blood pressure diastolic 92 mm Hg 023 Heart Rate 90 /min 06/06/2023 Respiratory Rate 18 /min 06/06/2023 Height 5 ft 4 in in 06/06/2023 Weight 150 lbs 06/06/2023 BMI 25.74 kg/m2 06/06/2023 Post procedure vitals BP 158 /82 HR 88 R 18. Pt discharged to home ambulatory with steady gait, no sign of acute distress. 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 Jacobo Emanuel. Some of the above chart information was entered by Umang Bearden. Dr. Emanuel has reviewed and agrees with this portion of the documentation. The remainder of the above note was dictated by Dr. Emanuel using voice recognition software and therefore inadvertent errors may have occurred. As a result, this note may not represent a completely accurate interpretation of the intended dictation provided. PLAN OF TREATMENT Treatment Notes Assessment Notes Other Umang Bearden was present for the entire interview and physical examination, acting as a scribe for Dr. Jacobo Emanuel. Some of the above chart information was entered by Umang Bearden. Dr. Emanuel has reviewed and agrees with this portion of the documentation. The remainder of the above note was dictated by Dr. Emanuel using voice recognition software and therefore inadvertent errors may have occurred. As a result, this note may not represent a completely accurate interpretation of the intended dictation provided. Next Appt Details Follow Up: 2 Weeks OPV, Reas on: Procedure Notes * Category Sub-Category Detail Notes Transforaminal Epidural Steroid Injection Locati on Bilateral Levels L4-5 Anesthesia Local without IV sed ation Operative Technique After the risks, savanna efits, alternative treatment options and potential complications related to the procedure were discussed, informed consent was obtained. The specific risks of this procedure including pain, bleeding, infection, spinal headache, persistent spinal fluid leak, epidural hematoma, nerve damage, spinal cord injury, paralysis, total spinal anesthesia resulting in cardiopulmonary arrest/, respiratory distress requiring intubation, insomnia, hyperglycemia, hair loss, muscle atrophy, skin depigmentation, weight gain, fluid retention, adrenal suppression, immunosuppression, osteoporosis resulting in fractures, avascular necrosis of the hip, cataracts, bleeding gastric ulcer, worsening pain and failure to relieve pain were discussed and the patient is agreeable to proceeding at this time. The patient was placed in the prone position on the fluoroscopy table and standard ASA monitors were applied. The back was prepped and draped in the usual sterile fashion with chlorhexidine 2%/IPA 70%. The c-arm was obliqued and tilted to identify the left L4-5 neural foramen and a 23 gauge 3.5 inch spinal needle was inserted under fluoroscopic guidance towards the junction of the inferior endplate and superior articular process until the superior articular process was contacted. A lateral view was taken and the needle tip was advanced into the posterior aspect of the neuroforamen. The subcutaneous structures were anesthetized with 3 mL of 1% Preservative-Free lidocaine during needle placement. An AP view was taken and after negative aspiration for blood, air or CSF, 2 mLs of Omnipaque 240 contrast dye was injected under live fluoroscopy for an epidurogram showing good spread within the epidural space and along the selected nerve root (except in cases of contrast allergy). No intravascular or intrathecal spread was noted. A solution of 10 mg of Preservative-Free Dexamethasone (10 mg/mL), plus 3 mL of 0.25% Preservative-Free bupivacaine was mixed and after negative aspiration 2 mL of this solution was slowly injected into the epidural space. The c-arm was obliqued and tilted to identify the right L4-5 neural foramen and a 23 gauge 3.5 inch spinal needle was inserted under fluoroscopic guidance towards the junction of the inferior endplate and superior articular process until the superior articular process was contacted. A lateral view was taken and the needle tip was advanced into the posterior aspect of the neuroforamen. The subcutaneous structures were anesthetized with 3 mL of 1% Preservative-Free lidocaine during needle placement. An AP view was taken and after negative aspiration for blood, air or CSF, 2 mLs of Omnipaque 240 contrast dye was injected under live fluoroscopy for an epidurogram showing good spread within the epidural space and along the selected nerve root (except in cases of contrast allergy). No intravascular or intrathecal spread was noted. From the solution of 10 mg of Preservative-Free Dexamethasone (10 mg/mL), plus 3 mL of 0.25% Preservative-Free bupivacaine, 2 mL of this solution was slowly injected into the epidural space. The needles were removed, the skin was cleaned and band-aids were placed over the puncture sites. The patient tolerated the procedure well, was able to ambulate without difficulty and was monitored for 20 minutes. The patient remained hemodynamically and neurologically stable. No apparent complications were observed. Postoperative instructions were reviewed with the patient. The patient was then discharged home in good condition with a bulk tank driver. X-ray time: 12 seconds Progress Notes * Examination Category Sub-Category Detail Notes Examination/ Pre-Anesthesia Assessment General: The patient is alert and arturo ented X 3 in moderate distress secondary to pain HEENT: Normocephalic, atrau matic. PERRL. The oropharynx is clear Neck: There is full range of motion of the cervical spine Heart: Regular rate and rhy thm Chest: Clear to auscultatio n bilaterally Abdomen: Soft and benign Musculoskeletal and Extremities: There i s tenderness to palpation over the bilateral L2-3 through L5-S1 facet joints. Extension and lateral rotation of the lumbar spine reproduces the patient's typical axial low back pain. Hiren's, [place]'s and Gaenslen's are positive bilaterally. There is tenderness palpation over the bilateral sacroiliac joints and greater trochanters. There is tenderness to palpation over the bilateral lumbar paraspinal muscles and palpable myofascial trigger points throughout Neurological: There is positive st raight leg raising on the left at 45 degrees. There is 4 out of 5 strength of the left EHL. Otherwise, there are no focal strength deficits in the remainder of the left lower extremity and entire right lower extremity Skin: Clean, dry and intac t Psychiatric: Mood and affect are normal History and Physical Notes * HPI (History of Present Illness) Category Sub-Category Detail Notes Pain Management Radiographic Imaging MRI of the lumbar spine done on 04/15/20 demonstrating a 3 mm anterolisthesis of L0 on L0 area at L0-5 there is disc bulging with annular fissure. There is severe bilateral facet arthropathy causing mild bilateral foraminal stenosis. At L0-S1 there is diffuse disc bulging with annular fissure. There is moderate bilateral facet arthritis causing mild bilateral foraminal stenosis X-ray lumbar spine 06/23/22 mild rotary scoliosis multilevel degenerative disc disease grade 1 anterior lithosis at L0-5. X-ray right hip performed on 07/28/22 reveals mild right hip osteoarthritis Assessment and Follow-up: Follow-up Plan documen gigi:: Yes [facility] Quality 2020: [facility] Documented:: Compliant
--- OUTSIDE RECORDS SUMMARY | 2024-08-09 10:04 | XMS_ITS ---
Author Organization [facility] Address [address] [place] [address] [place] Estevez [address] Care Team Providers Care Leadership Program Associate Name Role Phone SIXTO DWYER, NAGA REGGIE Primary Care Provider Elly rosario Jenae Jacobo Unavailable [phone] Camilo Ayala DC Unavailable Unavailable ALLERGIES Allergen (clinical drug ingredient) Drug/Non Drug Allergy documented on EMR Reaction Allergy Type Onset Date Status pregabalin Lyrica felt depressed Drug Allergy A ctive tramadol Tramadol sedation Drug Allergy Active REASON FOR VISIT Follow Up, Right Low Back Pain, Right Lower Extremity Pain MEDICATIONS Medication SIG (Take, Route, Frequency, Duration) Notes Start Date End Date Status Meloxicam 7.5 MG 1 tablet Orally BID pain for 30 day(s) 10/20/2020 Active Cyclobenzaprine HCl 5 MG 1-2 tab orally at bed time as needed for muscle spasm for 30 day(s) 10/20/2020 Active Calcium Active Fish Oil Active traMADol HCl 50 MG 1 tablet as needed O rally Once a day Active Rosuvastatin Calcium 20 MG TAKE 1 TABLET BY MOUTH DAILY Oral for 90 Active Lisinopril 10 MG Oral for 90 A ctive Medrol 4 MG as directed Orally 12/13/2022 Active PROBLEMS Problem Type ICD Code Onset Dates Problem Status W/U Status Risk SNOMED Code Notes Problem exterminator termite (current) use of anticoagulants (Z79.01) Active confirmed Long-term current use of anticoagulant (258112168) VITAL SIGNS Blood pressure systolic 164 mm Hg 05/25/20 23 Blood pressure diastolic 82 mm Hg 023 Heart Rate 83 /min 05/25/2023 Respiratory Rate 18 /min 05/25/2023 Height 5 ft 4 in in 05/25/2023 Weight 150 lbs 05/25/2023 BMI 25.74 kg/m2 05/25/2023 Encounters Encounter Location Date Provider Diagnosis [facility] [address] [place] [address] 05/25/2023 Jacobo Emanuel Sacroiliitis, not elsewhere classified M46.1 ; Radiculopathy, lumbar region M54.16 ; Spondylosis without myelopathy or radiculopathy, lumbar region M47.816 ; Radiculopathy, lumbosacral region M54.17 ; Intervertebral disc disorders with radiculopathy, lumbar region M51.16 ; 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 The risks of this procedure including pain, bleeding, [...] is agreeable to proceeding at this time. 05/25/2023 Spondylosis without myelopathy or radiculopathy, lumbar region (ICD-10 - M47.816) 05/25/2023 Radiculopathy, lumbosacral region (ICD-10 - M54.17) 05/25/2023 Intervertebral disc disorders with radiculopathy, lumbar region (ICD-10 - M51.16) 05/25/2023 Osseous stenosis of neural canal of lumbar region (ICD-10 - M99.33) 05/25/2023 Other intervertebral disc degeneration, lumbar region (ICD-10 - M51.36) 05/25/2023 Spondylosis without myelopathy or radiculopathy, lumbosacral region (ICD-10 - M47.817) 05/25/2023 exterminator termite (current) use of anticoagulants (ICD-10 - Z79.01) The patient was instructed to discontinue aspirin for 6 days prior to the procedure. I made the patient aware that she will be at an increased risk for a thromboembolic event during this time and she is willing to accept this risk. The patient was instructed to notify her primary care physician and/or recreation therapy director to obtain clearance prior to discontinuing this medication. 05/25/2023 Other The above-named patient was evaluated in conjunction with Dr. Emanuel. I have discussed and reviewed all of the pertinent history, physical examination findings and diagnostic imaging results with him. As a result of our discussion, Dr. Emanuel has determined the above assessment and directed the treatment plan. This note was dictated using voice recognition software and therefore inadvertent errors may have occurred. This note was dictated by DOMINIQUE Vargas PLAN OF TREATMENT Treatment Notes Assessment Notes Radiculopathy, lumbar region Schedule a bilateral L4-5 transforaminal epidural steroid injection. The risks of this procedure including pain, bleeding, [...] is agreeable to proceeding at this time. FDC (current) use of anticoagulant s The patient was instructed to discontinue aspirin for 6 days prior to the procedure. I made the patient aware that she will be at an increased risk for a thromboembolic event during this time and she is willing to accept this risk. The patient was instructed to notify her primary care physician and/or recreation therapy director to obtain clearance prior to discontinuing this medication. Other The above-named roxana ent was evaluated in conjunction with Dr. Emanuel. I have discussed and reviewed all of the pertinent history, physical examination findings and diagnostic imaging results with him. As a result of our discussion, Dr. Emanuel has determined the above assessment and directed the treatment plan. This note was dictated using voice recognition software and therefore inadvertent errors may have occurred. This note was dictated by DOMINIQUE Vargas Next Appt Details Follow Up: bilateral L4-5 TF E, Reason: Progress Notes * Examination Category Sub-Category Detail [...] patient's typical axial low back pain. Hiren's, [place]'s and Gaenslen's are positive bilaterally. There is [...] 04/15/20 demonstrating a 3 mm anterolisthesis of L3 on L4 area at L4-5 there is disc bulging with annular fissure. There is severe bilateral facet arthropathy causing mild bilateral foraminal stenosis. At L5-S1 there is diffuse disc bulging with annular fissure. There is moderate bilateral facet arthritis causing mild bilateral foraminal stenosis X-ray lumbar spine 06/23/22 mild rotary scoliosis multilevel degenerative disc disease grade 1 anterior lithosis at L4-5. X-ray right hip performed on 07/28/22 reveals mild right hip osteoarthritis Assessment and Follow-up: Follow-up Plan docpatricia gigi:: Yes [facility] Quality 2020: [facility] Documented:: Compliant
--- OUTSIDE RECORDS SUMMARY | 2024-08-09 10:04 | XMS_ITS | Referral Summary ---
Author Organization [address] Address [facility] [place] [address] Care Team Providers Care Installation Specialist Name Role Phone Ayo Dubois MD Primary Care Provider [phone] Sofía Jack MD Unavailable Allergies No known active allergies Medications PARoxetine (PAXIL) 10 mg tablet Take 1 tablet (10 mg total) by mouth every morning 30 tablet 11 03/18/2021 Active Active Problems Problem Noted Date Diagnosed Date Lichen sclerosus et atrophicus 10/24/2018 Social History Tobacco Use Types Packs/Day Years [...] on file Legal Sex Female 6:13 PM ABALONE PROCESSOR Gender Identity Female 03/11/2021 8:45 AM CDT Sexual Orientation Straight 03/11/2021 8: 45 AM CDT 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 Not on file Not on file Not on file Last Filed Vital Signs [...] Plan of Treatment Not on file Insurance [place] [employer] [place] [facility] H[facility]/PPO Address: [address] [address] [place] [address] [place] [address] [facility] H[facility]/PPO Address: [facility] [id number] [place] [phone] Care Teams Installation Specialist Relationship Specialty Start Date End Date Ayo Dubois MD [address] [place] [id number] PCP - General Family Medicine 07/24/18 Sofía Jack MD [address] [place] [address] [place] [address] Consulting Physician Obstetrics and Gynecology 08/27/18
--- OUTSIDE RECORDS SUMMARY | 2024-08-09 10:04 | XMS_ITS | Referral Summary ---
Author Organization [facility] [employer] Address [address] [place] [address] Care Team Providers Care Loan Review Manager Name Role Phone Ayo Dubois MD Primary Care Provider Source Comments [facility]non-owned Affiliates and Associated Physician Practices is amultiple site organization consisting of ambulatory clinics and hospital sitesin [place], [place], [place] and [place]. This disclosure is being madepursuant to the Care Everywhere program and may not contain all information available regarding this patient. Last updated 18.[facility] Allergies No known active allergies Medications * [...] 1,000 mg by mouth once daily Active [place]-3 Fatty Acids (OMEGA-3 FISH OIL) 1200 MG [...] AFLURIA QUADRIVALENT; 6MO+), 0.5 ML (IIV4) 04/15/2019 Social History Tobacco Use Types Packs/Day Years [...] 65.8 kg (145 lb) 04/25/2019 11:14 AM WEB ANALYST Height 160 cm (5' 3 ) 04/25/2019 11:14 AM WEB ANALYST Body Mass Index 25.69 04/25/2019 11:14 AM WEB ANALYST Plan of Treatment Not on file Care Teams Loan Review Manager Relationship Specialty Start Date End Date Ayo Dubois MD [address] [place] [address] PCP - General 11/02/18
--- OUTSIDE RECORDS SUMMARY | 2024-08-09 11:55 | XMS_ITS | Clinical Summary ---
Author Organization [facility] Address [address] [address] Care Team Providers Care Driver Supervisor Name Role Phone Ayo Dubois MD Primary Care Provider [phone] Source Comments [facility],non-owned Affiliates and Associated Physician Practices is amultiple site organization consisting of ambulatory clinics and hospital sitesin [place], [place], [place] and [place]. This disclosure is being madepursuant to the Care Everywhere program and may not contain all information available regarding this patient. Last updated 18.[facility] Allergies No known active allergies Medications * [...] 1,000 mg by mouth once daily Active Staples-3 Fatty Acids (OMEGA-3 FISH OIL) 1200 MG [...] 65.8 kg (145 lb) 04/25/2019 11:14 AM DISABILITY EXAMINER Height 160 cm (5' 3 ) 04/25/2019 11:14 AM DISABILITY EXAMINER Body Mass Index 25.69 04/25/2019 11:14 AM DISABILITY EXAMINER Plan of Treatment Health Maintenance Due Date [...] age to complete this topic Care Teams Driver Supervisor Relationship Specialty Start Date End Date Ayo Dubois MD [address] [place] [address] [place] [address] PCP - General 11/02/18
--- OUTSIDE RECORDS SUMMARY | 2024-08-09 11:55 | XMS_ITS | Clinical Summary ---
Author Organization [facility] Address [address] [place] [address] Care Team Providers Care Public Safety Officer Name Role Phone Ayo Dubois MD Primary Care Provider [phone] Allergies No known active allergies Medications rosuvastatin [...] Department Care Team Description 06/05/2024 10:15 AM INJECTION MOLD TOOLING TECHNICIAN - 06/05/2024 11:59 PM [facility] Hospital Encounter [facility] [place] [address] Antonino Inman MD Discharge Disposition: Home or [...] materials from doctor or pharmacy Never 03/14/2024 [facility] Utilities Answer Date Recorded In the past 12 months has th e [email or web address], gas, oil, or water company threatened to [...] any time in the past 12 m [facility], were you homeless or living in a prison (including now)? No 02/27/2024 Comments No Sex [...] discharge from hospital Lifestyle No Arina Mason, WOOL HAT FORMING MACHINE TENDER Medical Devices Implanted Type Area Machinist Brake Device Identifier Shelf Expiration Date Model / Serial / Lot Corelink F3d Straight Lumbar Cage Implanted:Qty: 1 on 02/26/2024 by Antonino Inman MD at [facility] Cage N/A: Spine Lumbar [id number] 06/23/2027 [id number] / / [id number] Description:CORELINK L3-4 Corelink F3d Straight Lumbar Cage Implanted:Qty: 1 on 02/26/2024 by Antonino Inman MD at [facility] Cage N/A: Spine Lumbar [id number] 08/20/2027 [id number] / / [id number] Description:CORELINK L5-S1 Corelink F3d Straight Lumbar Cage Implanted:Qty: 1 on 02/26/2024 by Antonino Inman MD at [facility] Cage N/A: Spine Lumbar [id number] 07/01/2028 [id number] / / [id number] Description:CORELINK L4-L5 Orthofix 90 Mm Herb Implanted:Qty: 2 on 02/26/2024 by Antonino Inman MD at [facility] Herb N/A: Spine Lumbar ORTHOFIX . [id number] / / . Orthofix 5.5 X 45 Mm Screw Implanted:Qty: 1 on 02/26/2024 by Antonino Inman MD at [facility] Screw N/A: Spine Lumbar ORTHOFIX . [id number] / / . Description:RIGHT L3 Orthofix 5.5 X 50 Mm Screws Implanted:Qty: 3 on 02/26/2024 by Antonino Inman MD at [facility] Screw N/A: Spine Lumbar ORTHOFIX . [id number] / / . Description:LEFT L3 BILATERAL L4 Orthofix 6.5 X 40 Mm Screws Implanted:Qty: 1 on 02/26/2024 by Antonino Inman MD at [facility] Screw N/A: Spine Lumbar ORTHOFIX . [id number] / / . Description:RIGHT S1 Orthofix 6.5 X 45 Mm Screws Implanted:Qty: 2 on 02/26/2024 by Antonino Inman MD at [facility] Screw N/A: Spine Lumbar ORTHOFIX . [id number] / / . Description:RIGHT L5 LEFT S1 Orthofix 6.5 X 50 Mm Screws Implanted:Qty: 1 on 02/26/2024 by Antonino Inman MD at [facility] Screw N/A: Spine Lumbar ORTHOFIX . [id number] / / . Description:LEFT L5 Orthofix Set Screws Implanted:Qty: 8 on 02/26/2024 by Antonino Inman MD at [facility] N/A: Spine Lumbar ORTHOFIX . 36 / / . Orthofix Top Loading Body Implanted:Qty: 8 on 02/26/2024 by Antonino Inman MD at [facility] N/A: Spine Lumbar ORTHOFIX . 36 / / . Procedures Procedure Name Priority Date/Time Associated Diagnosis Comments XR LUMB SPINE AP+LAT ONLY Routine 06/05/2024 10:40 AM INJECTION MOLD TOOLING TECHNICIAN Lumbar stenosis from Last 3 Months Results * XR LUMB SPINE AP+LAT ONLY (06/05/2024 10:40 AM INJECTION MOLD TOOLING TECHNICIAN) Anatomical Region Laterality Modality Spine Radiographic Alondra ging 06/08/2024 9:44 AM INJECTION MOLD TOOLING TECHNICIAN Impressions 06/08/2024 9:46 AM INJECTION MOLD TOOLING TECHNICIAN IMPRESSION: Stable fusion changes at L3-S1. Referred By: Interpreted By: Reji Leyva MD, 06/08/2024 9:44 AM Narrative 06/08/2024 9:46 AM INJECTION MOLD TOOLING TECHNICIAN [address] [address] Procedure(s): XR LUMB SPINE AP+LAT ONLY Date [...] Procedure Note Reji Leyva MD - 06/08/[address] [address] Procedure(s): XR LUMB SPINE AP+LAT ONLY Date [...] from Last 3 Months Insurance DANETTE MARTINES [id number] [employer] Advance Directives * Full Code (Latest Code Status on File) Date Activated Date Inactivated Comments 03/04/2024 10:46 AM * Full Code Date Activated Date Inactivated Comments 02/26/2024 2:52 PM 02/29/2024 2:39 PM Care Teams Public Safety Officer Relationship Specialty Start Date End Date Ayo Dubois MD [address] [place] [address] PCP - General FAMILY PRACTICE 02/15/24
--- OUTSIDE RECORDS SUMMARY | 2024-08-09 11:55 | XMS_ITS | Patient Health Summary ---
Author Organization [facility] [employer] Address [address] [place] [address] Care Team Providers Care Travel Guide Name Role Phone Ayo Dubois MD Primary Care Provider [phone] Note from [facility],non-owned Affiliates and Associated Physician Practices is amultiple site organization consisting of ambulatory clinics and hospital sitesin [place], [place], [place] and [place]. This disclosure is being madepursuant to the Care Everywhere program and may not contain all information available regarding this patient. Last updated 18.[facility] Allergies No known active allergies Medications * [...] 1,000 mg by mouth once daily * [place]-3 Fatty Acids (OMEGA-3 FISH OIL) 1200 MG [...] 65.8 kg (145 lb) 04/25/2019 11:14 AM COMMUNICABLE DISEASE SPECIALIST Height 160 cm (5' 3 ) 04/25/2019 11:14 AM COMMUNICABLE DISEASE SPECIALIST Body Mass Index 25.69 04/25/2019 11:14 AM COMMUNICABLE DISEASE SPECIALIST Procedures * MRI IAC WWO CONTRAST(Performed 04/02/2019) [...] on 04/02/2019 3:38 PM . Dhara Rodriguez PALLIATIVE CARE SPECIALIST-SALESPERSON [facility] MR ORDERABLE S * CREATININE BLOOD - POCT (IP) [facility] (04/02/2019 2:17 PM CDT) Creatinine POCT 0.86 0.3 - 1.3 mg/dL [facility] POCT TESTING eGFR POCT 60 60 ml/min [facility] POCT TESTING Blood BLOOD SPECIMEN / Unknown 04/02/2019 2:17 PM CDT Dhara Rodriguez PALLIATIVE CARE SPECIALIST-SALESPERSON [facility] - POINT OF CARE ORDERABLES [facility] POCT TESTING [facility] [address] [phone] Care Teams Travel Guide Relationship Specialty Start Date End Date Ayo Dubois MD [address] [place] [address] PCP - General 11/02/18
--- OUTSIDE RECORDS SUMMARY | 2024-08-09 11:55 | XMS_ITS | Clinical Summary ---
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
--- OUTSIDE RECORDS SUMMARY | 2024-08-09 11:55 | XMS_ITS | Referral Summary ---
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
--- OUTSIDE RECORDS SUMMARY | 2024-08-09 11:55 | XMS_ITS | Referral Summary ---
Author Organization [facility] Address [address] [place] [address] Care Team Providers Care Fiberglass Autobody Repairer Name Role Phone Ayo Dubois MD Primary Care Provider [phone] Source Comments [facility],non-owned Affiliates and Associated Physician Practices is amultiple site organization consisting of ambulatory clinics and hospital sitesin [place], [place], [place] and [place]. This disclosure is being madepursuant to the Care Everywhere program and may not contain all information available regarding this patient. Last updated 18.[facility] Allergies No known active allergies Medications * [...] 1,000 mg by mouth once daily Active [place]-3 Fatty Acids (OMEGA-3 FISH OIL) 1200 MG [...] 65.8 kg (145 lb) 04/25/2019 11:14 AM WARD CLERK Height 160 cm (5' 3 ) 04/25/2019 11:14 AM WARD CLERK Body Mass Index 25.69 04/25/2019 11:14 AM WARD CLERK Plan of Treatment Not on file Care Teams Fiberglass Autobody Repairer Relationship Specialty Start Date End Date Ayo Dubois MD [address] [place] [address] PCP - General 11/02/18
== END 2024-08-09 10:50 | disposition left against medical advice (07) ==
LOC: ANHED 11:29
PROVIDERS: Emergency Provider Emergency Medicine; PCP Family Medicine
DX: M79.622 Pain in left upper arm (principal)
CPT/HCPCS: 93005; 99199

== ENCOUNTER 2025-05-29 12:50 | Outpatient (CLI) | payer MEDICARE, SELFPAY ==
--- NOTE | ~2025-05-29 | MR_ITS ---
EXAMINATION: MRI lumbosacral spine with and without contrast: DATE: 05/29/2025 INDICATION: Chronic low back pain with radiculopathy. Prior history of surgery. TECHNIQUE: Axial, coronal and sagittal images are obtained including postcontrast series after administration of MultiHance IV. COMPARISON: Previous MRI lumbar spine dated 09/05/2023. Lumbar spine x-ray dated 09/01/2023. FINDINGS: Interval postsurgical changes, compared with prior imaging studies of 09/05/2023 with postsurgical changes at L3-4, L4-5, L5-S1 levels and posterior fixation hardware from L3 -S1 level. At L1-2 level, degenerative disc disease with bulging annulus is noted with facet arthropathy causing moderate compromise of both lateral recess. Findings at this level is unchanged from 09/05/2023. At L2-3 level, significant degenerative disc disease and severe facet arthropathy are noted causing significant compromise of both lateral recess and neural foramen and moderate compromise of thecal sac with AP diameter in the midline measuring 9.2 mm. The degenerative changes at L2-3 level are more pr ominent compared with 09/05/2023. Postsurgical changes at L3-4, L4-5 levels with dorsal decompression as well as at L5-S1 level. Posterior fixation hardware in place. No evidence of spinal stenosis is seen at these levels. No abnormal enhancement on postcontrast study. Paravertebral soft tissues are unremarkable. IMPRESSION: 1. Interval postsurgical changes at L3-4, L4-5 and L5-S1 levels with posterior fixation hardware compared with the previous examination of 09/05/2023. No evidence of spinal stenosis is seen at these levels. The spondylolisthesis that was noted at L4-5 level on prior preoperative examination is no longer seen. 2.At L2-3 level, significant degenerative disc disease and severe facet arthropathy are noted causing significant compromise of both lateral recess and neural foramen and moderate compromise of thecal sac with AP diameter in the midline measuring 9.2 mm. The degenerative changes at L2-3 level are more prominent compared with 09/05/2023. 3. Findings at other levels are unchanged from prior examination. No abnormal enhancement on postcontrast study. Reviewed, dictated and finalized at location T. E PRACTITIONER IMPRESSION: 1. Interval postsurgical changes at L3-4, L4-5 and L5-S1 levels with posterior fixation hardware compared with the previous examination of 09/05/2023. No evide nce of spinal stenosis is seen at these levels. The spondylolisthesis that was noted at L4-5 level on prior preoperative examination is no longer seen. 2.At L2-3 level, significant degenerative disc disease and severe facet arthrop athy are noted causing significant compromise of both lateral recess and neural foramen and moderate compromise of thecal sac with AP diameter in the midline measuring 9.2 mm. The degenerative changes at L2-3 level are more prominent com pared with 09/05/2023. 3. Findings at other levels are unchanged from prior examination. No abnormal e nhancement on postcontrast study.
== END 2025-05-29 12:51 | disposition home or self-care (01) ==
PROVIDERS: PCP Family Medicine; Visit Provider Nurse Practitioner Family
DX: M51.369 Other intervertebral disc degeneration, lumbar region without mention of lumbar back pain or lower extremity pain (principal); M47.896 Other spondylosis, lumbar region; Z98.890 Other specified postprocedural states
CPT/HCPCS: 72158; A9577